=== PATIENT | female | born 1990 | race African-American/Black ===

== ENCOUNTER → 2024-06-08 14:39 | Outpatient (REF) | payer OTHER, SELFPAY ==
[2024-06-08 16:52] LABS: Rubella Positive
[2024-06-08 17:14] LABS: Hepatitis B Surface Antibody Negative
[2024-06-09 14:16] LABS: Mumps Virus IgG Positive; Rubeola (Measles) IgG Positive; Varicella Zoster IgG (VZV) Positive
== END ==
LOC: OHS 14:39
PROVIDERS: ATTENDING PHYSICIAN Nurse Practitioner Family
DX: Z23 Encounter for immunization (principal)
CPT/HCPCS: 36415; 86706; 86735; 86762; 86765; 86787

== ENCOUNTER 2024-09-09 17:25 | Day surgery (SDC) | payer OTHER, SELFPAY ==
[2024-09-09] VITALS (7 sets, daily range): BP systolic 104–149; BP diastolic 68–97; BMI 35.9
[2024-09-09 11:58] LABS: % Basophils 0.6 % (0-2); % Eosinophils 0.4 % (0-6); % Immature Granulocytes 0.2 % (0-0.5); % Lymphocytes 39.7 % (20.5-51.1); % Monocytes 7.1 % (1.7-9.3); Absolute Lymphocytes 1.9 10^3/uL (1.2-3.4); Absolute Monocytes 0.3 10^3/uL (0.1-0.6); Absolute Neutrophils 2.4 10^3/uL (1.4-6.5); Hematocrit 29.3 % (37.0-47.0); Hemoglobin 9.6 g/dL (12.0-16.0); Mean Corp Hgb Conc. 32.8 g/dL (33.0-37.0); Mean Corpuscular Hgb 26.6 pg (27.0-31.0); Mean Corpuscular Volume 81.2 fL (81.0-99.0); Mean Platelet Volume 9.1 fL (7.4-10.4); Nucleated Red Blood Cells % 0 %; Platelet Count 335 10^3/uL (130-400); Red Blood Cell Count 3.61 10^6/uL (4.20-5.40); Urine Albumin 4+ (Neg - Trace); Urine Bilirubin Negative (Negative); Urine Character Cloudy (Clear); Urine Color Red; Urine Glucose Negative (Negative); Urine Ketone Negative (Negative); Urine Leukocyte 1+ (Negative); Urine Nitrite Negative (Negative); Urine Occult Blood 4+ (Negative); Urine Urobilinogen Negative (Neg - 1+); White Blood Cell Count 4.7 10^3/uL (4.8-10.8)
[2024-09-09 12:08] LABS: Urine Red Blood Cell >100 /HPF (0-2)
[2024-09-09 12:18] LABS: HCG, Serum Qualitative Screen Positive
[2024-09-09 12:20] LABS: ALT (SGPT) 17 U/L (0-35); AST (SGOT) 15 U/L (14-36); Alkaline Phosphatase 63 U/L (38-126); Blood Urea Nitrogen 13 mg/dl (7-17); Calcium 9.8 mg/dl (8.4-10.2); Carbon Dioxide 23 mmol/L (22-30); Chloride 108 mmol/L (98-107); Glucose 124 mg/dl (70-99); Potassium 4.1 mmol/L (3.5-5.1); Sodium 141 mmol/L (135-145); Total Bilirubin 0.3 mg/dl (0.2-1.3); eGFR > 60.00
--- NOTE | 2024-09-09 13:19 | ED.GENMED ---
History of Present Illness
General
Chief Complaint: Vaginal Bleeding
Source: patient
Exam Limitations: none
Time Seen by Provider: 09/09/24 12:28
Nursing documentation reviewed up to this point in time: agreed with
History of Present Illness
History of Present Illness:
34 yo F
unknown weeks preg
lmp may have been beginning of july
around pt started having heavy bleeding x 1 day with clots; she went to her OB/GYNE (in the city) and they apparently didn't check preg test
told her that since it slowed, she didn't need any testing for now
over the past 2 weeks hashad light bleeding until today; soaked through 6 pads in the past hour and has passed many clots;
she felt a little lightheaded
had lower back pain prior to starting th eheavy bleeding today
she has not had any syncope, vomiting, severe pelvic pain
Past History
Past History
ED Past Medical History: None
ED Past Surgical History: Gynecological (ectopic)
Social History
Tobacco: Non-smoker
Alcohol: None
Drug: None
Personal:
Living: with family
Employment: Employed
Review of Systems
Review of Systems
Allergies reviewed?: Yes
All Other Systems: Not applicable
Course
Orders/Labs/Results
Orders:
Orders
09/09/24 11:38
Test Result ONCE
09/09/24 11:49
Complete Blood Count/With Diff Urgent
Comprehensive Metabolic Panel Urgent
HCG, Serum Qualitative Screen Urgent
Comment: Notify provider if positive test present
Urinalysis Reflex To Culture Urgent
Date Specimen was Collected: 09/09/24
Time Specimen was Collected: 11:38
Urine Microscopic Reflex Cult Urgent
Urine Culture Urgent
JENNIE Source: U
Specimen Description:
Date Specimen was Collected: 09/09/24
Time Specimen was Collected: 11:38
09/09/24 12:41
Add On- LAB Urgent
Tests Added?: hcg quantitative
09/09/24 12:42
ABO [Blood Group&Type] Urgent
09/09/24 12:44
Beta HCG Quantitative Routine
09/09/24 13:09
US W Transvaginal Urgent
Comment:
Reason For Exam: HEAVY VAG BLEED, PREG;' EVAL ECTOPIC
Abnormal Lab Results
09/09/24
11:49
WBC 4.7 L 10^3/uL
(4.8-10.8)
RBC 3.61 L 10^6/uL
(4.20-5.40)
Hgb 9.6 L g/dL
(12.0-16.0)
Hct 29.3 L %
(37.0-47.0)
MCH 26.6 L pg
(27.0-31.0)
MCHC 32.8 L g/dL
(33.0-37.0)
RDW 15.0 H %
(11.5-14.5)
Chloride 108 H mmol/L
(98-107)
Glucose 124 H mg/dl
(70-99)
Ur Occult Blood Reflex 4+ A
(Negative)
Leukocyte Esterase Rfl 1+ A
(Negative)
Urine RBC >100 A /HPF
(0-2)
Urine Albumin (Reflex) 4+ A
(Neg - Trace)
09/09/24 11:49
09/09/24 11:49
Vital Signs
Initial and Last Documented VS:
Initial Vital Signs
Temp Pulse Resp BP Pulse Ox
37.1 C 110 20 149/97 98
09/09/24 11:33 09/09/24 11:33 09/09/24 11:33 09/09/24 11:33 09/09/24 11:33
Last Documented Vital Signs
Temp Pulse Resp BP Pulse Ox
37.1 C 110 20 149/97 98
09/09/24 11:33 09/09/24 11:33 09/09/24 11:33 09/09/24 11:33 09/09/24 11:33
ED Attending Note
-
Portions of this chart may have been created with voice recognition software.� Occasional wrong word or��sound alike� substitutions may have occurred due to the inherent limitations of voice recognition software.
Discharge Plan
Interventions
Interventions:
*Risk Screen - Suicide Last Done: 09/09/24 11:33
*General Assessment Last Done: 09/09/24 11:33
*Neglect/Abuse Screening Last Done: 09/09/24 11:33
*ED- Fall Risk Assessment Last Done: 09/09/24 12:25
*ED COVID-19 Vaccine History Last Done: 09/09/24 12:25
ED-Female Genitourinary Assessment Last Done: 09/09/24 12:25
Discharge Date and Time
Print Language: LUXEMBOURGISH
--- NOTE | 2024-09-09 16:12 | HPS.HSE ---
Family Physician
-
Family Physician: * NONE
Chief Complaint
-
vaginal bleeding
History of Present Illness
Patient is a 34yo who presents to the ED with complaints of heavy vaginal bleeding. Patient reports she was at work and started heavily bleeding and soaked through multiple pads within 30 minutes. She reports that she had some back pain that
was better after she passed clots. She says the bleeding has improved a little bit now but she is still actively bleeding. She felt dizzy earlier, but now is feeling better. She said she also had an episode of heavy bleeding 2 weeks ago and saw her
[facility] DRIVER in [facility] and her bleeding had improved by the time she saw them so there was no further testing done. Today, she had a positive test. She did not know that she was prior to today. She said her last normal period was in July
but she has been having much foamite mixer periods recently and she thought it was due to her age. Hcg today was 3713. Pelvic US showed no evidence of an intrauterine , retained products or adnexal masses. However, on speculum exam there were
products of conception in the cervical os. The products were not able to be removed with a ring forcep and with her heavy bleeding, dilation and evacuation was recommended.
PMHx: HTN
Meds: HCTZ daily
Surghx: C/Sx1, salpingostomy for ectopic
All: shellfish
Socialhx: occasional etoh use, denies current tobacco or illicit drug use
Famhx: non-contributory
OBHx: FT C/Sx1, ectopic x1 w/ salpingostomy, EABx1
Medical History
Past Medical History
Past Medical History: Reports Other
Additional Past Medical History:
HTN
Past Surgical History: Reports
Additional Past Surgical History:
salpingostomy for ectopic
Social History
Tobacco: Non-smoker
Alcohol: Occasional
Drug: None
Family History
Family History: Not pertinent
Allergies / Home Medications
Allergies reflects when Allergies were last updated in [facility].
Home Medications with original date entered in [facility]
Allergy/Medication List:
All: shellfish
Meds: HCTZ daily
Review of Systems
-
A 12 point ROS was completed and negative except as noted: Yes
Physical Exam
Vital Signs
Vital Signs
Temp Pulse Resp BP Pulse Ox
98.8 F 110 20 149/97 100
09/09/24 11:33 09/09/24 11:33 09/09/24 11:33 09/09/24 11:33 09/09/24 15:55
Physical Exam
General: Well Developed and Well Nourished
HEENT: NormoCephalic
Respiratory: Non Labored Respirations
Cardiac: Regular Rhythm
GI: Soft and Non Tender
Genito-urinary: Vaginal Bleeding and Other (SSE: large orange sized clot passed when speculum placed, products of conception present at external cervical os, pieces partially removed with ring forcep, not able to completely remove, active bleeding
noted)
Skin: Warm and Dry
Neuro: Awake, Alert and Oriented
Psych: Calm
Laboratory Results
-
09/09/24 11:49
09/09/24 11:49
Laboratory Results
Total Bilirubin 0.3 mg/dl (0.2-1.3) 09/09/24 11:49
AST 15 U/L (14-36) 09/09/24 11:49
ALT 17 U/L (0-35) 09/09/24 11:49
Alkaline Phosphatase 63 U/L (38-126) 09/09/24 11:49
Data Reviewed
-
Diagnostic Radiology: Report Reviewed by me
Impression/Plan
-
IMPRESSION:
Patient is a 34yo with an incomplete and vaginal bleeding
PLAN:
- Pelvic US was negative for retained products of conception, IUP, or adnexal masses, however products of conception present on speculum exam at the external cervical os. I attempted to remove the products, but was not able to. With patient's heavy
bleeding, recommend proceeding to the OR for D&E to remove products. Risks, benefits, and alternatives discussed including bleeding, infection, uterine perforation, damage to surrounding structures, and need for future operations. Patient consented
for a blood transfusion in case of emergency.
- Patient is AB negative. Since I do not know how far along she is, will give RhoGAM after the D&E
- Doxycycline 200mg IV ordered to be given prior to the procedure. Will send patient home with Doxycyline 200mg PO to be taken tonight
- She is aware she should follow up in the office in 2-4 weeks
[2024-09-09] MEDS: VIBRAMYCIN 270 MG IV (17:55)
[2024-09-09] MEDS: RHOGAM 300 MCG IM (18:13)
--- NOTE | 2024-09-09 19:50 | OR.RPT ---
Operative Report
Operative Report
Date operation: 09/09/2024
Preop diagnosis: incomplete
Postop diagnosis: same
Surgeon: Sindhu
Procedure: dilation and evacuation
Anesthesia: General, Dr. Aranda
EBL: 20mL
Findings: Bimanual exam revealed anteverted uterus 10wk size. Normal appearing cervix without lesions or masses.
Complications: none
Pathology: products of conception
Indication: Patient is a 34yo who presents for dilation and evacuation. She came to the Emergency Room with complaints of heavy vaginal bleeding. Patient had a positive hcg in the ED and hcg quant was 3713. She had a pelvic ultrasound that
showed no IUP, retained products or adnexal masses. On speculum exam, patient passed a large clot and then products of conception were seen at the external cervical os. They were not able to be removed in the ED and patient continued to have
bleeding so dilation and evacuation was recommended. Risks, benefits and alternatives to the procedure were discussed and consents signed. The OR was notified.
Procedure:
Patient was taken to the operating room and placed under general anesthesia. She was placed in the dorsal lithotomy position with Rodolfo type stirrups. She was given 200mg Doxycycline IV prior to the procedure for antibiotic prophylaxis. She was
prepped and draped in the normal sterile fashion. The bladder was drained with a straight catheter yielding 50cc of clear yellow urine. A Penn retractor was placed in the posterior aspect of the vagina and the anterior aspect of the vagina revealing
good visualization of the cervix. The anterior lip of the cervix was grasped with a single tooth tenaculum. Products of conception noted at the external cervical os and were removed with a ring forceps. The cervix was already about 1cm dilated. A
10mm curved rigid suction curette was introduced to the fundus. Vacuum was applied until it was in the green. A suction curettage was then performed with a rotational motion in all quadrants of the uterus. Multiple passes were performed until all
products of conception were removed. There was increased bleeding after one of the passes and 1g of TXA was given intravenously. Care was taken not to introduce the suction curette with suction applied. Bleeding improved after TXA and further passes
of the suction curette. The tenaculum was removed from the anterior lip of the cervix. The tenaculum sites were hemostatic. All instruments were removed from the vagina. All sponge and instrument counts were correct times 2. Patient was taken to
PACU in stable condition. She was given RhoGAM in PACU since her gestational age was unknown. A prescription for doxycycline 200mg PO was sent for patient to take tonight when she got home. She was instructed to call the office for follow up.
== END 2024-09-09 19:07 | disposition home or self-care (01) ==
LOC: SDS 17:25
PROVIDERS: Emergency Medicine; ATTENDING PHYSICIAN Student in an Organized Health Care Education/Training Program; EMERGENCY PHYSICIAN Emergency Medicine
DX: O03.4 Incomplete spontaneous abortion without complication (principal); N85.4 Malposition of uterus
CPT/HCPCS: 59812; 88305; 76830; 80053; 81003; 81015; 84702; 84703; 85025; 86850; 86900; 86901; 87086; 96372; 99285; J2790